=== PATIENT | male | born 1975 | race Caucasian/White ===

== ENCOUNTER 2017-11-29 10:59 | Emergency (ER) | payer OTHER ==
[~2017-11-29] VITALS: Ht 177.8 cm; Wt 83.9 kg
[2017-11-29] MEDS ORDERED: IBUPROFEN800 MG PO (14:08)
== END 2017-11-29 14:14 | disposition home or self-care (01) ==
LOC: ER 10:59
DX: S53.491A Other sprain of right elbow, initial encounter (principal); X50.3XXA Overexertion from repetitive movements, initial encounter; Y93.75 Activity, martial arts; Y92.89 Other specified places as the place of occurrence of the external cause; Y99.8 Other external cause status